=== PATIENT | female | born 1975 | race Caucasian/White ===

== ENCOUNTER 2018-06-09 08:30 | Inpatient (IN) | payer OTHER ==
[~2018-06-09] VITALS: Ht 167.6 cm; Wt 3.2 kg
[2018-06-09] MEDS ORDERED: PRENATABS RX T1 EACH PO (12:56)
[2018-06-13] MEDS ORDERED: CODE1TAB37 PO (13:46)
== END 2018-06-13 14:09 | disposition home or self-care (01) | DRG 788 ==
LOC: ADM 08:30 → EDSTATUS 08:30 → O/R 06-10 07:00 → OB/GYN 06-10 07:00
PROVIDERS: ADMIT Obstetrics & Gynecology
PROC: 4A1HXCZ Monitoring of Products of Conception, Cardiac Rate, External Approach (ICD-10-PCS; 2018-06-10)
PROC: 10D00Z1 Extraction of Products of Conception, Low, Open Approach (ICD-10-PCS; principal; 2018-06-10 11:00)
DX: O34.211 Maternal care for low transverse scar from previous cesarean delivery (principal); O75.82 Onset (spontaneous) of labor after 37 completed weeks of gestation but before 39 completed weeks gestation, with delivery by (planned) cesarean section; Z3A.38 38 weeks gestation of pregnancy; Z37.0 Single live birth